=== PATIENT | female | born 1980 | race Caucasian/White ===

== ENCOUNTER → 2023-12-29 13:44 | Outpatient (REF) | payer OTHER, SELFPAY | LOC: HWRAD 13:44 | PROVIDERS: ATTENDING PHYSICIAN Family Medicine | DX: M25.561 Pain in right knee (principal); M25.562 Pain in left knee | CPT/HCPCS: 73564 ==

== ENCOUNTER → 2024-02-09 11:33 | Outpatient (REF) | payer OTHER, SELFPAY | LOC: RCS 11:33 | PROVIDERS: ATTENDING PHYSICIAN Internal Medicine Cardiovascular Disease; FAMILY PHYSICIAN Family Medicine | DX: R06.02 Shortness of breath (principal); R00.2 Palpitations; R07.89 Other chest pain | CPT/HCPCS: 93017; 93306 ==

== ENCOUNTER → 2024-03-08 13:53 | Outpatient (REF) | payer OTHER, SELFPAY | LOC: DHSLP 13:53 | PROVIDERS: ATTENDING PHYSICIAN Family Medicine | DX: G47.00 Insomnia, unspecified (principal); R06.83 Snoring; R09.02 Hypoxemia | CPT/HCPCS: 95810 ==

== ENCOUNTER → 2024-03-09 07:00 | Outpatient (REF) | payer OTHER, SELFPAY | LOC: DHSLP 07:00 | PROVIDERS: ATTENDING PHYSICIAN Family Medicine | DX: G47.19 Other hypersomnia (principal) | CPT/HCPCS: 95805 ==

== ENCOUNTER → 2024-04-11 12:13 | Outpatient (REF) | payer OTHER, SELFPAY | LOC: HWRAD 12:13 | PROVIDERS: ATTENDING PHYSICIAN Internal Medicine Gastroenterology; FAMILY PHYSICIAN Family Medicine; REFERRING PHYSICIAN Internal Medicine Nephrology | DX: K74.60 Unspecified cirrhosis of liver (principal) | CPT/HCPCS: 76700 ==

== ENCOUNTER 2024-10-13 06:26 | Inpatient (IN) | payer OTHER, SELFPAY ==
[2024-10-12 23:26] VITALS: BMI 27.9
[2024-10-12 23:27] VITALS: BP 118/90
[2024-10-12 23:36] LABS: % Basophils 0.5 % (0-2); % Eosinophils 0.3 % (0-6); % Immature Granulocytes 0.6 % (0-0.5); % Lymphocytes 22.5 % (20.5-51.1); % Monocytes 6.6 % (1.7-9.3); % Neutrophils 69.5 % (42.2-75.2); Absolute Basophils 0.1 10^3/uL (0-0.2); Absolute Eosinophils 0.1 10^3/uL (0-0.7); Absolute Immature Granulocytes 0.1 10^3/uL (0-0.05); Absolute Lymphocytes 3.9 10^3/uL (1.2-3.4); Absolute Monocytes 1.1 10^3/uL (0.1-0.6); Hematocrit 41.7 % (37.0-47.0); Mean Corpuscular Hgb 32.8 pg (27.0-31.0); Mean Corpuscular Volume 91.2 fL (81.0-99.0); Nucleated Red Blood Cells % 0.1 %; Platelet Count 568 10^3/uL (130-400); Red Blood Cell Count 4.57 10^6/uL (4.20-5.40); Red Cell Dist. Width 13.4 % (11.5-14.5); White Blood Cell Count 17.2 10^3/uL (4.8-10.8)
[2024-10-13] VITALS (8 sets, daily range): BP systolic 113–140; BP diastolic 67–105
[2024-10-13 00:05] LABS: ALT (SGPT) 40 U/L (0-35); AST (SGOT) 40 U/L (14-36); Albumin 4.2 g/dl (3.5-5.0); Alkaline Phosphatase 97 U/L (38-126); Blood Urea Nitrogen 28 mg/dl (7-17); Carbon Dioxide 21 mmol/L (22-30); Chloride 103 mmol/L (98-107); Estimated Creatinine Clearance 56 ml/min; Glucose 120 mg/dl (70-99); Potassium 4.1 mmol/L (3.5-5.1); Sodium 132 mmol/L (135-145); Total Protein 6.8 g/dl (6.3-8.2); eGFR > 60.00
[2024-10-13] MEDS: NSS 1000 IV (00:58)
[2024-10-13] MEDS: MORPHINE SULFATE 4 MG IV (01:57)
[2024-10-13] MEDS: ADACEL 0.5 ML IM (02:02)
[2024-10-13 02:31] LABS: Urine Albumin 2+ (Neg - Trace); Urine Bilirubin Negative (Negative); Urine Character Clear (Clear); Urine Color Yellow; Urine Glucose Negative (Negative); Urine Ketone 2+ (Negative); Urine Leukocyte Negative (Negative); Urine Nitrite Negative (Negative); Urine Occult Blood 4+ (Negative); Urine Specific Gravity 1.015 (<1.030); Urine Urobilinogen Negative (Neg - 1+)
--- NOTE | 2024-10-13 02:37 | ED.GENMED ---
History of Present Illness
General
Chief Complaint: Fall
Time Seen by Provider: 10/13/24 00:26
History of Present Illness
History of Present Illness:
44-year-old female with prior history of substance abuse presenting to the emergency department for head trauma after a fall. 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 She became dizzy and lightheaded and fell
backwards. She struck a metal pole on the back of her head and reports a brief second of LOC. She noticed she was bleeding. She is not on any blood thinners. She now reports headache. She denies changes in her vision. Denies weakness or
numbness to her extremities. Tetanus status unknown. She denies preceding chest pain or difficulty breathing. Notes that she has been feeling dizzy and lightheaded past few days. Symptoms. Denies additional acute medical complaints
Past History
Past History
ED Past Medical History: Other ('Narcolepsy')
ED Past Surgical History: Other
Social History
Tobacco: Non-smoker
Alcohol: Chronic alcoholic
Drug: None
Personal:
Employment: Employed
Family History
Family History: Other
Phy Exam
Physical Exam
Physical Exam:
General: Well-appearing, no clinical signs of dehydration, nontoxic and in no acute distress
HEENT: protecting airway, pupils equal and reactive
Head: Large horizontal laceration at the occiput
Neck: appears supple
CV: Normal heart rate, regular rhythm
Resp: No accessory muscle use, no increased work of breathing, lungs clear to auscultation bilaterally
Abd: Soft and non-distended, no tenderness to palpation
Extremities: No deformities, no swelling
Neuro: alert, no focal neurologic deficit
: deferred
Rectal: deferred
Psych: Normal affect
Skin: Intact
Course
Orders/Labs/Results
Orders:
Orders
10/12/24 23:28
Electrocardiogram (*1) Urgent
Reason for Study: Fatigue / Weakness
EKG- Treatment ONCE
10/12/24 23:31
Alcohol Urgent
Complete Blood Count/With Diff Urgent
Comprehensive Metabolic Panel Urgent
10/12/24 23:32
CT Head W/o Iv Contrast Urgent
Comment:
Reason For Exam: fall, head strike
10/13/24 00:28
CT Cervical Spine W/o Iv Contr Urgent
Comment:
Reason For Exam: fall
CT Head & Neck Angio W/wo IV Urgent
Comment:
Reason For Exam: fall, abnormal CT, c/o bleed
10/13/24 00:46
0.9% Sodium Chloride 1000 ml [Nss] 1,000 ml IV BOLUS
Tetanus/Diphth/Acelpertussis [Adacel] 0.5 ml IM .ONCE ONE
10/13/24 01:49
Morphine Sulfate 4 mg IV NOW STA
10/13/24 01:53
Add On- LAB Urgent
Tests Added?: alcohol level
Test Result ONCE
10/13/24 01:56
, Urine Qualitative Screen [HCG, Urine Qualitative Screen] Urgent
Date Specimen was Collected: 10/13/24
Time Specimen was Collected: 01:54
Urinalysis Reflex To Culture Urgent
Date Specimen was Collected: 10/13/24
Time Specimen was Collected: 01:54
Urine Drug Abuse Screen Urgent
Date Specimen was Collected: 10/13/24
Time Specimen was Collected: 01:54
Urine Microscopic Reflex Cult Urgent
10/13/24 02:36
Levetiracetam [Keppra] 500 mg PO NOW STA
Abnormal Lab Results
10/12/24 10/13/24
23:31 01:56
WBC 17.2 H 10^3/uL
(4.8-10.8)
MCH 32.8 H pg
(27.0-31.0)
Plt Count 568 H 10^3/uL
(130-400)
Abs Immat Gran (auto) 0.1 H 10^3/uL
(0-0.05)
Absolute Neuts (auto) 12.0 H 10^3/uL
(1.4-6.5)
Absolute Lymphs (auto) 3.9 H 10^3/uL
(1.2-3.4)
Absolute Monos (auto) 1.1 H 10^3/uL
(0.1-0.6)
Immature Gran % 0.6 H %
(0-0.5)
Sodium 132 L mmol/L
(135-145)
Carbon Dioxide 21 L mmol/L
(22-30)
BUN 28 H mg/dl
(7-17)
Creatinine 1.1 H mg/dL
(0.6-1.0)
Glucose 120 H mg/dl
(70-99)
AST 40 H U/L
(14-36)
ALT 40 H U/L
(0-35)
Urine Ketones 2+ A
(Negative)
Ur Occult Blood Reflex 4+ A
(Negative)
Urine Albumin (Reflex) 2+ A
(Neg - Trace)
10/12/24 23:31
10/12/24 23:31
Vital Signs
Initial and Last Documented VS:
Initial Vital Signs
Pulse Resp BP Pulse Ox
81 18 118/90 100
10/12/24 23:27 10/12/24 23:27 10/12/24 23:27 10/12/24 23:27
Last Documented Vital Signs
Pulse Resp BP Pulse Ox
85 26 138/93 100
10/13/24 01:24 10/13/24 01:24 10/13/24 01:24 10/12/24 23:27
Procedures
Laceration Closure
Occipital:
Status of Wound: clean
Size of Wound in cm: 7
Preparation: cleaned with saline
Anesthesia: 1% Lidocaine
Type of Closure: single layer closure
Skin Closure Material: skin khurram
Number of sutures: 5
MDM/Problems Addressed
MDM/Problems Addressed:
44-year-old female with prior history of substance abuse presenting to the emergency department for dizziness and subsequent fall with head injury. Vital signs on arrival are normal.
On exam patient is in no acute distress, however does have obvious signs of head trauma. Patient is seen through triage prior to my assessment with laboratory analysis obtained as well as CT brain imaging. On my exam, no focal neurologic deficits.
However, CT does show trace subarachnoid blood products along the interhemispheric fissure. There is also fractures of the occipital calvarium, without definite condylar involvement. Laceration was repaired. Please see procedure note. Will
consult with neurosurgery regarding management.
02:35 - Discussed with neurosurgery from [facility]. Feel the patient can be managed here for repeat CT scan in 6 hours and admission to the IMU. Given loss of consciousness, recommending to 500 mg twice daily for 7 days, and SBP less than 140.
Patient updated.
*EKG
Interpreted by ED Provider?: Yes
EKG Intrepretation Date: 10/13/24
EKG Intrepretation Time: 02:40
Interpretation: normal
Heart Rate: 83
Rate: normal
Rhythm: sinus
[place]: normal axis
Interval: normal interval
QRS Pattern: normal QRS
Ischemia: no ischemia
*Critical Care Note
Total Time (30-74mins, 75-104mins- exclusive of procedures): 42
comment:
The high probability of a clinically significant, sudden or life threatening deterioration of the trauma system(s) required my full and direct attention, intervention and personal management. The aggregate critical care time was 42 minutes. This
time is in addition to time spent performing reported procedures but includes the following:
[x] Data Review and interpretation
[x] Patient assessment and monitoring of vital signs
[x] Documentation
[x] Medication orders and management
ED Attending Note
-
Portions of this chart may have been created with voice recognition software.� Occasional wrong word or��sound alike� substitutions may have occurred due to the inherent limitations of voice recognition software.
Discharge Plan
Departure
Prescriptions:
No Action
gabapentin 600 MG tablet
600 mg PO BIDPRN PRN (Reason: neuropathy)
naltrexone 50 MG tablet
100 mg PO DAILY
clonazepam 0.5 MG tablet
0.5 mg PO DAILYPRN PRN (Reason: anxiety)
Patient Comments:
12/31/2022: last filled 12/23/22, 30 tabs for 30 days from [facility]
gabapentin [Neurontin] 800 MG tablet
800 mg PO TID
levothyroxine 50 MCG tablet
50 mcg PO DAILY
dextroamphetamine-amphetamine [Adderall] 20 MG tablet
20 mg PO BID
Patient Comments:
12/31/2022: last filled 12/09/22, 60 tabs for 30 days from [facility]
furosemide 20 MG tablet
20 mg PO DAILY
lamotrigine 100 MG tablet
100 mg PO HS
rosuvastatin 10 MG tablet
15 mg PO QPM
Xywav 0.5 gram/mL solution
2.5 g PO HS
Rx Instructions:
2.5g in 60ml of water
valsartan 80 mg tablet
80 mg PO DAILY
nicotine 21 mg/24 hr patch 24 hour
1 patch transdermal DAILY
hydrochlorothiazide 25 mg tablet
25 mg PO DAILY
quetiapine 150 mg tablet extended release 24 hr
150 mg PO HS
Referrals:
Riccardo Stanton DO [Family Provider] -
Interventions
Interventions:
*Risk Screen - Suicide Last Done: 10/12/24 23:31
*General Assessment Last Done: 10/12/24 23:29
*Neglect/Abuse Screening Last Done: 10/12/24 23:31
*ED- Fall Risk Assessment Last Done: 10/12/24 23:31
*ED COVID-19 Vaccine History Last Done: 10/12/24 23:32
ED- Neurological Assessment Last Done: 10/12/24 23:41
ED-Skin Assessment Last Done: 10/12/24 23:41
Discharge Date and Time
Print Language: [place] ISLAND[place]
[2024-10-13 02:39] LABS: Alcohol None Detected
[2024-10-13 02:40] LABS: HCG, Urine Qualitative Screen Negative
[2024-10-13 02:48] LABS: Amphetamines Positive (Negative); Barbiturates Negative (Negative); Benzodiazepines Negative (Negative); Buprenorphine Negative (Negative); Cocaine Negative (Negative); Marijuana Positive (Negative); Methadone Negative (Negative); Methamphetamines Negative (Negative); Opiates Negative (Negative); Phencyclidine Negative (Negative); Tricyclic Antidepressants Negative (Negative)
[2024-10-13] MEDS: KEPPRA 500 MG PO ×2 (02:49→13:55)
[2024-10-13 02:52] LABS: Urine White Cell None Seen /HPF (0-5)
[2024-10-13 03:01] LABS: Fentanyl, Urine Negative (Negative)
[2024-10-13] MEDS: DILAUDID 1 MG IV (03:29)
--- NOTE | 2024-10-13 06:20 | HPS.HSE ---
Family Physician
-
Family Physician: Riccardo Stanton
Chief Complaint
-
Fall / Head Injury
History of Present Illness
Patient is a 44y F with PMH significant for Bipolar disorder, CKD / proteinuria and peripheral neuropathy who presents to ED for evaluation s/p fall with head trauma. Patient does not recall precise details of the event. She notes that she was
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 She states that she was sitting on a flat cart and the next thing she recalls is waking with severe pain in the back of her
head. She had blood on her hand when she felt the area and she presented to the ED for further evaluation.
In the ED, patient was noted to have laceration to the occipital region which was closed with khurram.
CT scan done in the ED showed tiny SAH as well as bilateral occipital fractures without condyle involvement.
Patient is awake and alert and neurologically intact.
She has history of alcohol / substance abuse but denies any recent illicit substance use. (THC gummies for anxiety).
Medical History
Past Medical History
Past Medical History: Reports Other
Additional Past Medical History:
Bipolar Disorder
Sub-nephrotic Proteinuria
ADHD
Insomnia / Narcolepsy
Polyclonal Gammopathy
Chronic Fatigue Syndrome
Fibromyalgia
Hypothyroidism
Asthma
Past Surgical History: Reports Other
Additional Past Surgical History:
T&A
Kidney Biopsy
Bone Marrow Biopsy
Social History
Tobacco: Smoker
Alcohol: Former (Histroy of alcohol use disorder. Sober x several years.)
Drug: None
Family History
Family History: Not pertinent
Allergies / Home Medications
Allergies reflects when Allergies were last updated in [facility].
Home Medications with original date entered in [facility]
Allergy/Medication List:
Allergies
Allergy/AdvReac Type Severity Reaction Status Date / Time
No Known Allergies Allergy Verified 10/12/24 23:27
Home Medications
clonazepam 0.5 mg tablet 0.5 mg PO DAILYPRN PRN anxiety 09/04/21
dextroamphetamine-amphetamine 20 mg tablet (Adderall) 20 mg PO BID 09/04/21
furosemide 20 mg tablet 20 mg PO DAILY 09/04/21
gabapentin 600 mg tablet 600 mg PO BIDPRN PRN neuropathy 09/04/21
gabapentin 800 mg tablet (Neurontin) 800 mg PO TID 09/04/21
lamotrigine 100 mg tablet 100 mg PO HS 09/04/21
levothyroxine 50 mcg tablet 50 mcg PO DAILY 09/04/21
naltrexone 50 mg tablet 100 mg PO DAILY 09/04/21
rosuvastatin 10 mg tablet 15 mg PO QPM 09/04/21
hydrochlorothiazide 25 mg tablet 25 mg PO DAILY 12/31/22
nicotine 21 mg/24 hr daily transdermal patch 1 patch transdermal DAILY 12/31/22
quetiapine 150 mg tablet,extended release 24 hr 150 mg PO HS 12/31/22
sodium, calcium, magnesium, potassium oxybates 0.5 gram/mL oral soln (Xywav) 2.5 g PO HS 12/31/22
valsartan 80 mg tablet 80 mg PO DAILY 12/31/22
Review of Systems
-
History Source: Patient
A 12 point ROS was completed and negative except as noted: Yes
Constitutional: Reports Fatigue; Denies Fever or Chills
Respiratory: Denies Cough or Trouble Breathing
Cardiac: Denies Chest Pain or Palpitations
Abdomen/GI: Denies Abdominal Pain, Nausea, Vomiting or Diarrhea
: Denies Dysuria, Frequency or Flank Pain
Musculoskeletal: Denies Joint Pain or Edema
Neurological: Reports Dizzy, Headache and Weakness; Denies Numbness
Psych: Denies Depression or Anxiety
Physical Exam
Vital Signs
Vital Signs
Pulse Resp BP Pulse Ox
86 15 140/105 100
10/13/24 05:45 10/13/24 05:45 10/13/24 05:00 10/12/24 23:27
Physical Exam
General: Other (44y F in no acute distress. Verbose / pressured speech.)
HEENT: Moist mucous membranes, PERRLA and Other (Occipital laceration with khurram in place. No active bleeding.)
Respiratory: Clear; No Wheezes, Rales or Rhonchi
Cardiac: S1/S2 and Regular Rhythm; No Murmur
GI: Soft, Non Tender, Non Distended and Normal Bowel Sounds
Musculoskeletal: No Clubbing, No Cyanosis and No Edema
Neuro: AO x 3 and Nonfocal/grossly intact
Laboratory Results
-
10/12/24 23:31
10/12/24 23:31
Laboratory Results
Total Bilirubin 1.0 mg/dl (0.2-1.3) 10/12/24 23:31
AST 40 U/L (14-36) H 10/12/24 23:31
ALT 40 U/L (0-35) H 10/12/24 23:31
Alkaline Phosphatase 97 U/L (38-126) 10/12/24 23:31
Impression/Plan
-
A/P: Patient is a 44y F with PMH significant for bipolar disorder and hypothyroidism who presents to ED for evaluation after fall / head injury earlier in the day.
SAH
Occipital Fracture - Bilateral
- Admit for further evaluation and treatment.
- [address] scan shows no significant change from prior per prelim / Vision read.
- Follow neurologic exam for changes.
- Neurosurgery eval for additional recommendations.
- Pain control / supportive care / etc.
- Continue BID Keppra for seizure prevention per Neurosurgery recs.
- HOB elevation. Goal SBP < 140.
Fall / Syncope
- Unclear mechanism of fall / ? syncope / etc.
- Patient with intermittent lightheadedness prior to event associated with exertion throughout the day.
- Monitor on telemetry for any arrhythmia.
- PT / OT evaluations when OK to participate per Neurosurgery.
- Orthostatic BPs.
- Follow for any recurrent symptoms / complaints.
Bipolar Disorder
- Some exacerbation of symptoms with rambling / pressured speech / anxiety.
- Continue current med regimen.
- Consider addition of PRN BZDs for anxiety - but would prefer to avoid sedation given head injury.
Benign Hypertension
Proteinuria
- Continue valsartan. PRN labetalol for SBP > 140.
- Adjust regimen as needed for control.
Hypothyroidism
- Stable. Continue T4 supplementation.
History of Substance Use Disorder
- Sober x several years per patient.
- UDS consistent with prescribed medications (ADHD) and admitted recent use of THC gummies. Otherwise unremarkable.
DVT Prophylaxis: SCDs
Code Status: Full
[2024-10-13] MEDS: DILAUDID 0.25 MG IV (08:32)
--- NOTE | 2024-10-13 08:51 | EDRN ---
Dr. Talley in room w/pt at this time.
--- NOTE | 2024-10-13 09:07 | EDRN ---
Dr. Talley remains in room conversing w/ pt.
--- NOTE | 2024-10-13 09:15 | EDRN ---
Dr. Talley left to speak to [facility]surgeon. Pt is room w/ lights out at this time and door closed at this time.
--- NOTE | 2024-10-13 09:42 | EDRN ---
Pt is to be transferred to [facility] per Dr. Talley and starting the process now.
--- NOTE | 2024-10-13 10:05 | EDRN ---
Following message sent to Dr. Talley at this time: Zoran updat me on transfer. Do we have an accepting physician and zoran note pt is saying she does not want to transfer to [facility]. 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
--- NOTE | 2024-10-13 10:08 | W.PN.UPDATE ---
Update Note
Progress Note Update
Admitted by Dr. Martin this morning.
Patient apparently had a fall and sustained a subarachnoid hemorrhage and 2 areas and occipital calvarium fracture with occipital scalp laceration which is stapled.
She is not sure whether she passed out but she was feeling weak and lightheaded and dizzy. 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
She had a headache post fall seems to be coming from scalp area. She needed 2 doses of pain medication so far. Currently without headache. She has no nausea vomiting. She has no vision symptoms or speech impairment. She has no limb weakness.
No tingling numbness.
Clinically nonfocal neurologically.
Discussed with radiologist Dr. Justin-stable follow-up repeat CT head with regards to subarachnoid hemorrhage. CT angiogram head and neck not officially read by Katharine reading no obstructions and no mention about aneurysm.
Discussed with the neurosurgeon who will see the patient this morning.
Dispo-continue to observe in IMU
--- NOTE | 2024-10-13 10:19 | EDRN ---
Dr. Talley responded: No she is staying here in IMU for today and once seen by Neurosurgeon and if they are comfortable she can leave
--- NOTE | 2024-10-13 10:21 | EDRN ---
Pt is all dressed and boyfriend is here to take her home. Dr. Talley was informed of this and asked when neurosurgeon is coming to see her and he responded In an hour he said
--- NOTE | 2024-10-13 11:00 | EDRN ---
Pt states she is okay w/ admission to ICU bed at this time. Pt is to see Neurosurgeon for decisions on pt.
--- NOTE | 2024-10-13 11:03 | EDRN ---
ICU will not take report at this time saying pt is to see neurosurgeon and be discharged though it is unknown that neurosurgeon will discharge pt. Alisa Cat called while this RN on phone and is going to speak w/ Jamey Long at this time, she said.
--- NOTE | 2024-10-13 11:14 | EDRN ---
Per Alisa Cat RN Dir of ED, Jamey Cheng and Tara decided to await neurosurgeon consult w/ pt in ER.
--- NOTE | 2024-10-13 11:45 | EDRN ---
Pt will not keep cardiac monitor technician in place. Pt was just seen walking down hallway w/ boyfriend saying she cannot stay in her room anymore and was going to get coffee. Pt walking towards pod #2.
--- NOTE | 2024-10-13 11:52 | EDRN ---
Pt is back in room at this time, lying on stretcher fully clothed on top of boyfriend. Vital signs taken. Pt continues to say she wants to leave and go home.
--- NOTE | 2024-10-13 12:07 | EDRN ---
Dr. Talley said pt could have coffee and a diet. Pt given coffee at this time. Pt is complaining of a headache.
--- NOTE | 2024-10-13 12:50 | EDRN ---
Neurosurgeon in room w/pt at this time.
--- NOTE | 2024-10-13 13:01 | EDRN ---
Pt states neurosurgeon said she can go home and to start Keppra. Also that she can eat.
--- NOTE | 2024-10-13 13:10 | EDRN ---
Neurosurgeon contacted Dr. Talley that pt may be discharged. Dr. Talley is working on discharge paperwork at this time.
--- NOTE | 2024-10-13 13:25 | W.PN.UPDATE ---
Update Note
Progress Note Update
Seen by Dr Caputo neurosurgery this afternoon.
He texted me that she is stable for DC . Recommends Keppra 500mg bid for a week.
Pt advised to follow with PCP for khurram removal .
Total time of same day discharge 32 min
[2024-10-13] MEDS: PERCOCET 5/325 1 TABLET PO (13:26)
--- NOTE | 2024-10-13 13:28 | W.DCSUMMARY ---
Discharge Summary
Discharge Data
Date of Admission: 10/13/24
Date of Discharge: 10/13/24
-
Pending Results: No
Hospital Course
Primary diagnosis:
Traumatic subarachnoid hemorrhage
Secondary diagnosis:
Bipolar disorder
Proteinuria
Peripheral neuropathy
Hospital course:
44-year-old lady who had what looks like a mechanical fall had a scalp laceration with the bleeding so presented to the hospital. On further evaluation the initial CT head was showing concern about subarachnoid hemorrhage versus artifact and
nondisplaced fracture of the occipital calvarium. She was nonfocal neurologically. Blood pressure was stable. She had follow-up 6-hour CT head per neurosurgery recommendation and showed no significant interval changes in that finding of
subarachnoid hemorrhage. CT angio head and neck no large vessel occlusion, aneurysm.
Was seen by neurosurgery today who feels that she is stable and could be discharged home. They recommend Keppra for a week. Advised not drive till cleared by primary care physician. Also advised her to have her scalp khurram removed in 5 to 7
days. No changes made home medication.
Consultants on board:
Neurosurgery-Uriel Parry
Discharge Plan
-
Patient Disposition: Home (Routine Discharge)
Discharge Diagnosis/Procedures: Fall with traumatic subarachnoid hemorrhage , occipital calvarium fracture, and posterior scalp laceration
Diet: Regular
Activity: As tolerated
Driving Restrictions: Not until seen by your Dr
Bathing Restrictions: None
Activity Restrictions/Additional Instructions:
Have khurarm in scalp removed in 5-7 days
Referrals:
Riccardo Stanton DO [Family Provider] - in less than 1 week
Cayla Bhakta MD [Active] - in two weeks
Prescriptions:
New
acetaminophen [Tylenol Extra Strength] 500 mg tablet
500 mg PO Q6H PRN (Reason: mild pain) Qty: 1 0RF
ibuprofen 400 mg tablet
400 mg PO Q6H PRN (Reason: moderate pain) Qty: 20 0RF
levetiracetam [Keppra] 500 mg tablet
500 mg PO BID Qty: 14 0RF
Rx Instructions:
take it for one week
Continued
gabapentin 600 MG tablet
1,200 mg PO TID
clonazepam 0.5 MG tablet
0.5 mg PO DAILYPRN PRN (Reason: anxiety)
levothyroxine 50 MCG tablet
50 mcg PO DAILY
dextroamphetamine-amphetamine [Adderall] 20 MG tablet
20 mg PO TID
lamotrigine 100 MG tablet
200 mg PO HS
venlafaxine [Effexor XR] 150 mg Capsule,Extended Release 24hr
150 mg PO HS
valsartan 40 mg Tablet
40 mg PO DAILY
Repatha SureClick 140 mg/mL Pen Injector
140 mg SC Q2W
Zepbound 2.5 mg/0.5 mL Pen Injector
2.5 mg SC TU
Rx Instructions:
for 4 weeks
sucralfate [Carafate] 1 gram Tablet
1 g PO AC
metoprolol succinate [Toprol XL] 25 mg Tablet Extended Release 24 Hr
12.5 mg PO DAILY
budesonide-formoterol [Symbicort] 160-4.5 mcg/actuation Hfa Aerosol Inhaler
2 inh INHALATION R BID
Quviviq 50 mg Tablet
50 mg PO HS
Discharge Orders:
Discharge Patient (As Directed); Ordered 10/13/24
Ordered By: Marty Talley
Discharge Date and Time
Print Language: MOSOT[place]
--- NOTE | 2024-10-13 13:29 | EDRN ---
Pt given pain med for H/A and boxed lunch to eat at this time.
--- NOTE | 2024-10-13 13:46 | EDRN ---
Pharmacy called for meds ordered prior to pt leaving. lauren Fisher.
[2024-10-13] MEDS: DIOVAN 80 MG PO (13:55)
[2024-10-13] MEDS: SYNTHROID 50 MCG PO (13:55)
--- NOTE | 2024-10-13 17:00 | CON.NS ---
Addendum entered and electronically signed by Uriel Caputo DO 10/16/24 16:03:
Date of consultation 10/13/24
Original Note:
Chief Complaint
-
fall
History of Present Illness
This is a 44 yo female with possible syncopal episode. Presented to ER with head and neck pain. CT head showed scatterred tSAH and a left occipital skull fracture. She denied any blood thinners. She was walking around the room when i saw her. She
expressed wanting to go home multiple times. She had two CT scans which were stable.
Review of Systems
-
10 pt ROS completed
Medication and Allergies
Home Medications
Home Medications
�Medication �Instructions �Recorded
clonazepam 0.5 mg tablet 0.5 mg PO DAILYPRN PRN anxiety 09/04/21
dextroamphetamine-amphetamine 20 20 mg PO TID 09/04/21
mg tablet (Adderall)
gabapentin 600 mg tablet 1,200 mg PO TID 09/04/21
lamotrigine 100 mg tablet 200 mg PO HS 09/04/21
levothyroxine 50 mcg tablet 50 mcg PO DAILY 09/04/21
acetaminophen 500 mg tablet 500 mg PO Q6H PRN mild pain #1 tab 10/13/24
(Tylenol Extra Strength)
budesonide-formoterol HFA 160 2 inh inhalation R BID 10/13/24
mcg-4.5 mcg/actuation aerosol
inhaler (Symbicort)
daridorexant 50 mg tablet (Quviviq) 50 mg PO HS 10/13/24
evolocumab 140 mg/mL subcutaneous 140 mg SC Q2W 10/13/24
pen injector (Repatha SureClick)
ibuprofen 400 mg tablet 400 mg PO Q6H PRN moderate pain 10/13/24
#20 tabs
levetiracetam 500 mg tablet 500 mg PO BID #14 tabs 10/13/24
(Keppra)
metoprolol succinate 25 mg 12.5 mg PO DAILY 10/13/24
tablet,extended release 24 hr
(Toprol XL)
sucralfate 1 gram tablet (Carafate) 1 g PO AC 10/13/24
tirzepatide (weight loss) 2.5 2.5 mg SC TU 10/13/24
mg/0.5 mL subcutaneous pen
injector (Zepbound)
valsartan 40 mg tablet 40 mg PO DAILY 10/13/24
venlafaxine 150 mg 150 mg PO HS 10/13/24
capsule,extended release 24 hr
(Effexor XR)
Allergies
Allergies
Allergy/AdvReac Type Severity Reaction Status Date / Time
No Known Allergies Allergy Verified 10/12/24 23:27
Physical Exam
-
Exam:
AAOx3
GCS15
pain to palpation on occiput
MAEx4 equally
no drift
CN's intact
speech fluent
resp even and unlabored
CT head x 2 shows FINDINGS:
The ventricles are normal in size, configuration, and position for age. There is possible trace subarachnoid blood along the interhemispheric fissure superiorly and anteriorly, versus artifact. There is no intra- or extra-axial mass or fluid
collection. No areas of abnormal mass effect or attenuation are otherwise noted. Visualized paranasal sinuses are free of mucosal disease. There are nondisplaced fractures of the occipital calvarium extending towards the foramen magnum and likely
involving the posterior occipital condyles.
IMPRESSION:
Suspect trace subarachnoid blood as described.
Nondisplaced fractures of the occipital calvarium.
both CT's are stable and independently reviewed by me.
CTA negative for vascular malformation, no VST
Problems
-
Problem Status Onset Code
Occipital fracture S02.119A
Subarachnoid hemorrhage I60.9
Assessment / Plan
-
Traumatic SAH, Skull fracture
-CT stable x2
-Keppra 500 po BID x 7 days
-She requires no surgery and is at neurologic baseline
-she wishes to discharge, as it has been almost 24 hours i am comfortable with this. I instructed her to return to the ER if she developes worsening NARANJO, speech diff, weakness in Ue or LE, seizure activity, or if generally concerned
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
- she does not require and neurosurgical follow up as an OP
we will sign off
== END 2024-10-13 14:38 | disposition home or self-care (01) | DRG 84 ==
LOC: ED 06:26
PROVIDERS: Student in an Organized Health Care Education/Training Program; ADMITTING PHYSICIAN Hospitalist; ATTENDING PHYSICIAN Internal Medicine; EMERGENCY PHYSICIAN Student in an Organized Health Care Education/Training Program; FAMILY PHYSICIAN Family Medicine; OTHER PHYSICIAN Neurological Surgery
DX: S06.6XAA Traumatic subarachnoid hemorrhage with loss of consciousness status unknown, initial encounter (principal); F31.9 Bipolar disorder, unspecified; R80.9 Proteinuria, unspecified; G62.9 Polyneuropathy, unspecified; W19.XXXA Unspecified fall, initial encounter; S01.01XA Laceration without foreign body of scalp, initial encounter; S02.119A Unspecified fracture of occiput, initial encounter for closed fracture; E03.9 Hypothyroidism, unspecified; F17.200 Nicotine dependence, unspecified, uncomplicated; F41.9 Anxiety disorder, unspecified; Z79.899 Other long term (current) drug therapy
CPT/HCPCS: 12002; 70450; 70496; 70498; 72125; 80053; 80306; 80307; 81003; 81015; 81025; 82077; 85025; 90471; 90715; 93005; 96361; 96374; 96375; 99291; Q9967

== ENCOUNTER → 2024-12-29 11:21 | Outpatient (REF) | payer OTHER, SELFPAY | LOC: HWRAD 11:21 | PROVIDERS: ATTENDING PHYSICIAN Family Medicine; REFERRING PHYSICIAN Otolaryngology | DX: J01.01 Acute recurrent maxillary sinusitis (principal) | CPT/HCPCS: 70486 ==